=== PATIENT | male | born 1960 | race Caucasian/White ===

== ENCOUNTER 2021-10-27 19:10 | Emergency (ER) | payer MEDICARE, MEDICAID ==
[2021-10-27] MEDS ORDERED: Sodium Chloride 0.9% 10 ML Syringe FLUSH PRN (19:33)
[2021-10-27] MEDS ORDERED: Sodium Chloride 0.9% 1,000 ML IV SCH (19:45)
[2021-10-27] MEDS ORDERED: HYDROmorphone 0.5 MG/0.5 ML Syringe IVPUSH ONE (19:48)
== END 2021-10-27 21:22 | disposition home or self-care (01) ==
LOC: JP.ED 19:10
DX: K85.30 Drug induced acute pancreatitis without necrosis or infection (principal); T50.905A Adverse effect of unspecified drugs, medicaments and biological substances, initial encounter; I10 Essential (primary) hypertension; Z88.0 Allergy status to penicillin; Z88.1 Allergy status to other antibiotic agents; Z88.2 Allergy status to sulfonamides
CPT/HCPCS: 36415; 80048; 80076; 81001; 83690; 85025; 96374; 99283; 99284-25; J1170; J7030

== ENCOUNTER 2021-10-29 21:45 | Emergency (ER) | payer MEDICARE, MEDICAID ==
[2021-10-29] MEDS ORDERED: HYDROmorphone 1 MG/ML Syringe IM ONE (22:21)
== END 2021-10-29 23:55 | disposition home or self-care (01) ==
LOC: JP.ED 21:45
DX: K85.30 Drug induced acute pancreatitis without necrosis or infection (principal); T40.2X5A Adverse effect of other opioids, initial encounter; Z88.0 Allergy status to penicillin; Z88.2 Allergy status to sulfonamides; Z88.1 Allergy status to other antibiotic agents
CPT/HCPCS: 36415; 74019; 74019-26; 80053; 83605; 83690; 85025; 96372; 99283; 99284-25; J1170

== ENCOUNTER 2022-01-03 17:53 | Emergency (ER) | payer MEDICARE, MEDICAID ==
[2022-01-03] MEDS ORDERED: Sodium Chloride 0.9% 10 ML Syringe FLUSH PRN (18:17)
[2022-01-03] MEDS ORDERED: Dexamethasone 4 MG/ML SDV IVPUSH ONE (18:20)
[2022-01-03] MEDS ORDERED: Clindamycin Phosphate 900 MG in Sodium Chloride 0.9% 100 ML IV ONE (18:20)
[2022-01-03] MEDS ORDERED: fentaNYL 50 MCG/ML SDV IVPUSH ONE (18:21)
== END 2022-01-03 21:02 | disposition home or self-care (01) ==
LOC: JP.ED 17:53
DX: U07.1 COVID-19 (principal); J01.90 Acute sinusitis, unspecified; J00 Acute nasopharyngitis [common cold]; R59.0 Localized enlarged lymph nodes; E04.1 Nontoxic single thyroid nodule; I10 Essential (primary) hypertension; Z88.0 Allergy status to penicillin; Z88.1 Allergy status to other antibiotic agents; Z91.041 Radiographic dye allergy status; Z88.2 Allergy status to sulfonamides; Z20.822 Contact with and (suspected) exposure to COVID-19
CPT/HCPCS: 36415; 70490; 80053; 83605; 84145; 85025; 85610; 85651; 85730; 86140; 87040; 96365; 96375; 99283; 99284-25; J1100; J3010; J3490; U0002

== ENCOUNTER 2022-01-15 12:00 | Emergency (ER) | payer MEDICARE, MEDICAID | END 2022-01-15 13:40 | disposition home or self-care (01) | LOC: JP.ED 12:00 | DX: J32.9 Chronic sinusitis, unspecified (principal); B37.9 Candidiasis, unspecified; I10 Essential (primary) hypertension; F41.9 Anxiety disorder, unspecified; Z88.1 Allergy status to other antibiotic agents; Z88.0 Allergy status to penicillin; Z91.041 Radiographic dye allergy status | CPT/HCPCS: 99282; 99283 ==

== ENCOUNTER 2022-02-08 18:23 | Emergency (ER) | payer MEDICARE, MEDICAID | END 2022-02-08 19:32 | disposition home or self-care (01) | LOC: JP.ED 18:23 | DX: S70.12XA Contusion of left thigh, initial encounter (principal); I10 Essential (primary) hypertension; G20 Parkinson's disease; C91.10 Chronic lymphocytic leukemia of B-cell type not having achieved remission; Z88.0 Allergy status to penicillin; Z88.1 Allergy status to other antibiotic agents; Z88.2 Allergy status to sulfonamides; X58.XXXA Exposure to other specified factors, initial encounter | CPT/HCPCS: 99283 ==